=== PATIENT | male | born 1965 | race Caucasian/White ===

== ENCOUNTER 2017-07-22 07:47 | Emergency (ER) | payer OTHER ==
[2017-07-22] MEDS ORDERED: NS 0.9% 1000 ML* 1,000 ML IV SCH (08:30)
[2017-07-22 08:37] LABS: ABS Basophils 0 10^3/ul (0-0.2); ABS Eosinophils 0.1 10^3/ul (0-0.6); ABS Lymphocytes 1.7 10^3/ul (1.0-4.8); ABS Monocytes 0.6 10^3/ul (0-0.8); ABS Neutrophils 3.9 10^3/ul (1.5-7.7); ABS Nucleated RBC 0 10^3/ul; Eosinophil % 1.7 % (0-6); Hematocrit 46 % (42-52); Hemoglobin 15.8 g/dl (14.0-18.0); Lymphocyte % 27.2 % (25-47); Mean Corpuscular HGB Conc 35 g/dl (31-36); Mean Corpuscular Hemoglobin 32 pg (27-31); Mean Corpuscular Volume 92 fL (80-94); Mean Platelet Volume 7 um3 (7.4-10.4); Nucleated Red Blood Cells % 0.1; Platelet Count 256 10^3/ul (150-450); Red Blood Count 4.95 10^6/ul (4.0-5.4); Red Cell Distribution Width 13 % (10.5-15); White Blood Count 6.4 10^3/ul (3.5-10.8)
[2017-07-22 08:53] LABS: EGFR Non-African American 76.4 (>60)
[2017-07-22] MEDS ORDERED: Iohexol 300* (CONTRAST) 10 ML SDV IV ONE (09:14)
--- NOTE | 2017-07-22 10:54 | RAD ---
CLINICAL HISTORY: 4 days of abdominal pain COMPARISON: None TECHNIQUE: Contrast enhanced CT examination of the abdomen and pelvis from the lung bases through the initial tuberosities. The patient received mL intravenously prior to imaging.The patient received oral contrast as well prior to imaging. FINDINGS: VISUALIZED LUNG BASES: The visualized lung bases are grossly clear. There is no pleural effusion. ABDOMEN AND PELVIS: The liver is homogenously hypodense relative to the spleen. The spleen, pancreas and adrenal glands are grossly normal in appearance. The gallbladder is normal. The kidneys are normal in appearance without focal mass, calcification or signs of hydronephrosis. Neural contrast has progressed as far as the base of the cecum. The small and large bowel are not distended. The patient's normal appendix is identified in the right lower quadrant measuring 5 mm in diameter (image 59). There are air-fluid levels throughout the small bowel and colon. There is no definite wall thickening. Incidentally noted is a large amount of gas in the rectum. There is no gross retroperitoneal or mesenteric lymphadenopathy. The pelvic viscera is normal in appearance. The abdominal aorta and iliac arteries are normal in course and diameter. Degenerative changes include multilevel loss of intervertebral disc height involving the lower thoracic and lumbar spine. The most severe degenerative changes are at L5/S1 where there is pars interarticularis defects causing at least grade 1 bordering on grade 2 anterolisthesis of L5 over S1 with subsequent endplate sclerosis, vacuum disc phenomenon and marginal osteophyte formation. IMPRESSION: 1. Air-fluid levels throughout the otherwise normal-appearing small and large bowel are consistent with diarrhea illness. There is also incidentally noted a large amount of gas in the rectum which may be contributing element of "gas pain". 2. Likely hepatic steatosis. 3. Additional chronic and degenerative changes described in the body the report
[2017-07-22 11:42] VITALS: BP 118/71
--- NOTE | 2017-07-22 18:09 | ED ---
Gabriel Osorio Nikita, scribed for Juan Marcos MD on 07/22/17 at 0837 . Abdominal Pain/Male - HPI Summary HPI Summary: This patient is a 52 year old M presenting to ED with a chief complaint of mid abdominal pain since 4 days ago. The CC is described as dull, tight, intermittent, and non-radiating. The patient rates the pain 5/10 in severity. Symptoms aggravated by nothing. Symptoms alleviated by lying in the bathtub and eating sauerkraut. Patient reports diarrhea (2.5 days ago). Patient denies N/V, CP, and SOB. - History of Current Complaint Chief Complaint: EDAbdPain Stated Complaint: ABD PAIN Time Seen by Provider: 07/22/17 08:17 Hx Obtained From: Patient Onset/Duration: Sudden Onset, Lasting Days, Still Present Timing: Intermittent Severity Initially: Moderate Severity Currently: Moderate Pain Intensity: 5 Pain Scale Used: 0-10 Numeric Location: Other - mid abdominal pain Radiates: No Character: Dull, Other: - tight Aggravating Factor(s): Nothing Alleviating Factor(s): Other: - lying in the bathtub and eating sauerkraut Associated Signs And Symptoms: Positive: Other - Patient reports diarrhea (2.5 days ago). Patient denies N/V, CP, and SOB. - Allergies/Home Medications Allergies/Adverse Reactions: Allergies Allergy/AdvReac Type Severity Reaction Status Date / Time No Known Allergies Allergy Verified 07/22/17 08:01 Home Medications: Home Medications NK [No Home Medications Reported] 07/22/17 [History Confirmed 07/22/17] PMH/Surg Hx/FS Hx/Imm Hx Endocrine/Hematology History: Denies: Hx Diabetes Cardiovascular History: Denies: Hx Coronary Artery Disease, Hx Hypertension - Immunization History Date of Influenza Vaccine: 03/2017 Immunizations Up to Date: Yes Infectious Disease History: No Infectious Disease History: Denies: Traveled Outside the [place] in Last 30 Days - Family History Known Family History: Positive: Cardiac Disease - Social History Alcohol Use: Occasionally Substance Use Type: Reports: None Smoking Status (MU): Never Smoked Tobacco Review of Systems Negative: Chest Pain Negative: Shortness Of Breath Positive: Abdominal Pain - mid abdominal pain, Diarrhea. Negative: Vomiting, Nausea All Other Systems Reviewed And Are Negative: Yes Physical Exam - Summary Physical Exam Summary: VITAL SIGNS: Reviewed. GENERAL: Patient is a well-developed and nourished male who is lying comfortable in the stretcher. ~Patient is not in any acute respiratory distress. HEAD AND FACE: Normocephalic and atraumatic. EYES: PERRLA, EOMI x 2, No injected conjunctiva. EARS: Hearing grossly intact. Ear canals and tympanic membranes are WNL. MOUTH: Oropharynx within normal limits. NECK: Supple, trachea is midline, no adenopathy, no JVD. CHEST: Symmetric, no tenderness at palpation LUNGS: Clear to auscultation bilaterally. No wheezing or crackles. CVS: RRR, S1 and S2 present, no murmurs or gallops appreciated. ABDOMEN: Diffuse abdominal tenderness . No signs of distention. Positive bowel sounds. No rebound no guarding, and no masses palpated. No abdominal bruit or pulsations. EXTREMITIES: FROM in all major joints, no edema, no cyanosis or clubbing. NEURO: Alert and oriented x 3. No acute neurological deficits. Speech is normal. SKIN: Dry and warm Triage Information Reviewed: Yes Vital Signs On Initial Exam: Initial Vitals Temp Pulse Resp BP Pulse Ox 97.6 F 77 16 144/97 99 07/22/17 07:51 07/22/17 07:51 07/22/17 07:51 07/22/17 07:51 07/22/17 07:51 Vital Signs Reviewed: Yes Diagnostics - Vital Signs Vital Signs Temp Pulse Resp BP Pulse Ox 07/22/17 08:06 73 14 96 07/22/17 08:05 151/97 07/22/17 07:51 97.6 F 77 16 144/97 99 - Laboratory Lab Results: Lab Results 07/22/17 07/22/17 07/22/17 Range/Units 08:25 08:25 11:28 WBC 6.4 (3.5-10.8) 10^3/ul RBC 4.95 (4.0-5.4) 10^6/ul Hgb 15.8 (14.0-18.0) g/dl Hct 46 (42-52) % MCV 92 (80-94) fL MCH 32 H (27-31) pg MCHC 35 (31-36) g/dl RDW 13 (10.5-15) % Plt Count 256 (150-450) 10^3/ul MPV 7 L (7.4-10.4) um3 Neut % (Auto) 60.6 (38-83) % Lymph % (Auto) 27.2 (25-47) % Stewart % (Auto) 9.7 H (1-9) % Eos % (Auto) 1.7 (0-6) % Baso % (Auto) 0.8 (0-2) % Absolute Neuts (auto) 3.9 (1.5-7.7) 10^3/ul Absolute Lymphs (auto) 1.7 (1.0-4.8) 10^3/ul Absolute Monos (auto) 0.6 (0-0.8) 10^3/ul Absolute Eos (auto) 0.1 (0-0.6) 10^3/ul Absolute Basos (auto) 0 (0-0.2) 10^3/ul Absolute Nucleated RBC 0 10^3/ul Nucleated RBC % 0.1 Sodium 134 (133-145) mmol/L Potassium 4.1 (3.5-5.0) mmol/L Chloride 103 (101-111) mmol/L Carbon Dioxide 26 (22-32) mmol/L Anion Gap 5 (2-11) mmol/L BUN 13 (6-24) mg/dL Creatinine 1.03 (0.67-1.17) mg/dL Est GFR ( Amer) 98.3 (>60) Est GFR (Non-Af Amer) 76.4 (>60) BUN/Creatinine Ratio 12.6 (8-20) Glucose 96 (70-100) mg/dL Calcium 9.9 (8.6-10.3) mg/dL Magnesium 2.0 (1.9-2.7) mg/dL Total Bilirubin 0.80 (0.2-1.0) mg/dL AST 17 (13-39) U/L ALT 17 (7-52) U/L Alkaline Phosphatase 68 (34-104) U/L Total Creatine Kinase 131 (10-223) U/L Troponin I 0.00 0.00 (<0.04) ng/mL C-Reactive Protein 1.22 (< 5.00) mg/L Total Protein 7.0 (6.4-8.9) g/dL Albumin 4.5 (3.2-5.2) g/dL Globulin 2.5 (2-4) g/dL Albumin/Globulin Ratio 1.8 (1-3) Amylase 32 (29-103) U/L Lipase 42 (11.0-82.0) U/L Result Diagrams: 07/22/17 08:25 07/22/17 08:25 Lab Statement: Any lab studies that have been ordered have been reviewed, and results considered in the medical decision making process. - CT Abd/pel CT Interpretation Completed By: Radiologist - 1. Air-fluid levels throughout the otherwise normal-appearing small and large bowel are consistent with diarrhea illness. There is also incidentally noted a large amount of gas in the rectum which may be contributing element of "gas pain". 2. Likely hepatic steatosis. 3. Additional chronic and degenerative changes described in the body the report. ED physician has reviewed this radiology report. - EKG 0801 Cardiac Rate: NL EKG Rhythm: Sinus Rhythm - 70 bpm EKG Interpretation: No ST elevations Re-Evaluation - Re-Evaluation First Eval Re-Evaluation Time: 11:34 Comment: Discussed discharge plan with the pt. Abdominal Pain Fem Course/Dx - Course Assessment/Plan: This patient is a 52 year old M presenting to ED with a chief complaint of mid abdominal pain since 4 days ago. Abd/pel CT 1. Air-fluid levels throughout the otherwise normal-appearing small and large bowel are consistent with diarrhea illness. There is also incidentally noted a large amount of gas in the rectum which may be contributing element of "gas pain". 2. Likely hepatic steatosis. 3. Additional chronic and degenerative changes described in the body the report. In the ED course, the pt remained stable, passed gas, and feels slightly better. Since Sx are improving and CT is negative , the pt will be D/C with f/u with PCP. The pt is hemodynamically stable, alert and oriented x3. I discussed all the findings and test results with the patient. Patient was instructed to return to the emergency room immediately if any of the symptoms return or worsens. Plan of care was discussed with the patient and understands and agrees. All questions were answered at patient satisfaction. There were no further complaints or concerns. Lung exam before discharge: CTA B/L. Good air exchange. No wheezing or crackles heard. CVS: S1 and S2 present. No murmurs appreciated. Patient is alert and oriented x 3. Patient is hemodynamically stable. Patient will be discharged home with follow up PCP in the next 2-3 days - Diagnoses Differential Diagnosis/HQI/PQRI: Appendicitis, Bowel Obstruction, Constipation, Diverticulitis, Renal Colic, Other - enteritis Provider Diagnoses: Enteritis Discharge - Discharge Plan Condition: Stable Disposition: HOME Patient Education Materials: Enteritis (ED) Referrals: Glen Lehman MD [Primary Care Provider] - 3 Days Additional Instructions: RETURN TO THE ED FOR ANY NEW OR WORSENING SYMPTOMS. The documentation as recorded by the Gabriel meade Nikita accurately reflects the service I personally performed and the decisions made by Hemant swanson Walter, MD.
== END 2017-07-22 11:45 | disposition home or self-care (01) ==
LOC: ED 07:47
DX: K52.9 Noninfective gastroenteritis and colitis, unspecified (principal)
CPT/HCPCS: 36415; 74177; 80053; 82150; 82550; 83690; 83735; 84484; 85025; 86140; 93005; 99282; Q9967

== ENCOUNTER 2017-07-25 07:56 | Emergency (ER) | payer OTHER ==
[2017-07-25] MEDS ORDERED: Morphine INJ* 4 MG/ML 1 ML CARPUJECT IV ONE (08:32)
[2017-07-25] MEDS ORDERED: Ondansetron INJ* 2 MG/ML VIAL IV ONE (08:32)
[2017-07-25 08:57] LABS: ABS Basophils 0 10^3/ul (0-0.2); ABS Eosinophils 0.1 10^3/ul (0-0.6); ABS Lymphocytes 1.3 10^3/ul (1.0-4.8); ABS Monocytes 0.5 10^3/ul (0-0.8); ABS Neutrophils 3.1 10^3/ul (1.5-7.7); ABS Nucleated RBC 0 10^3/ul; Eosinophil % 2.3 % (0-6); Hematocrit 46 % (42-52); Hemoglobin 15.6 g/dl (14.0-18.0); Lymphocyte % 26.3 % (25-47); Mean Corpuscular HGB Conc 34 g/dl (31-36); Mean Corpuscular Hemoglobin 32 pg (27-31); Mean Corpuscular Volume 93 fL (80-94); Mean Platelet Volume 7 um3 (7.4-10.4); Nucleated Red Blood Cells % 0; Platelet Count 249 10^3/ul (150-450); Red Blood Count 4.93 10^6/ul (4.0-5.4); Red Cell Distribution Width 13 % (10.5-15); White Blood Count 5.1 10^3/ul (3.5-10.8)
--- NOTE | 2017-07-25 09:32 | RAD ---
HISTORY: 1 week of right upper quadrant pain COMPARISONS: CT of the abdomen and pelvis dated July 22, 2017 TECHNIQUE: Multiple transverse and longitudinal ultrasound images were obtained of the right upper quadrant. FINDINGS: LIVER: The liver is normal in dimensions and echogenicity. Normal hepatic and portal venous blood flow is duplicated with color flow imaging. There is no gross intrahepatic biliary duct dilatation. GALLBLADDER AND EXTRAHEPATIC BILIARY DUCT: The gallbladder is normal in appearance without intraluminal stones or other soft tissue masses. There is no pericholecystic fluid or gallbladder wall thickening. The common bile duct measures a maximum diameter of 3 mm. PANCREAS: Overlying bowel gas prevents reliable imaging of the pancreas. RIGHT KIDNEY: The right kidney is normal in size, morphology and echogenicity. AORTA AND IVC: The visualized portions are normal in appearance and not pathologically dilated. IMPRESSION: Normal ultrasound of the right upper quadrant.
[2017-07-25] MEDS ORDERED: Pantoprazole IV* 40 MG IV ONE (10:55)
--- NOTE | 2017-07-25 11:13 | RAD ---
Indication: Mid chest pain for one week. Comparison: July 22, 2017 CT and July 25, 2017 RIGHT upper quadrant ultrasound. Technique: Supine and upright views of the abdomen. Report: No radiographic evidence for free air. Short segment mildly dilated small bowel at the upper abdomen without significant air-fluid levels. Gas distention of the colon. Pelvic phleboliths. No suspicious calcifications. Negative for mass effect. IMPRESSION: Nonspecific bowel gas pattern with mildly prominent upper abdominal small bowel loops. Correlate for potential ileus.
[2017-07-25 11:52] VITALS: BP 136/82
[2017-07-25 12:54] LABS: Urine Appearance Clear; Urine Blood Negative (Negative); Urine Color Yellow; Urine Ketones Negative (Negative); Urine Protein Negative (Negative); Urine Specific Gravity 1.014 (1.010-1.030); Urine Urobilinogen Negative (Negative)
--- NOTE | 2017-07-26 18:07 | ED ---
Reagan Osorio Angela, scribed for Juan Marcos MD on 07/25/17 at 0830 . Abdominal Pain/Male - HPI Summary HPI Summary: This pt is a 52 y/o male presenting to [facility] c/o epigastric pain since last night at 22:00. Pt reports he had a piece of chicken thigh with noodles last evening and his pain began at 22:00 after he ate. He states he felt great while at work yesterday. He currently rates his pain 8/10 in severity. Pt notes his pain is aggravated with ambulating. He denies SOB, nausea, vomiting, diarrhea. Pt was in the ED 3 days ago for the same symptoms and had an abdomen/pelvis CT. - History of Current Complaint Chief Complaint: EDAbdPain Stated Complaint: ABD PAIN Time Seen by Provider: 07/25/17 08:22 Hx Obtained From: Patient Onset/Duration: Lasting Hours, Still Present Timing: Lasting Hours Severity Currently: Severe Pain Intensity: 8 Pain Scale Used: 0-10 Numeric Location: Diffuse Radiates: No Aggravating Factor(s): Other: - ambulating Alleviating Factor(s): Nothing Associated Signs And Symptoms: Negative: Fever, Nausea, Vomiting, Diarrhea - Allergies/Home Medications Allergies/Adverse Reactions: Allergies Allergy/AdvReac Type Severity Reaction Status Date / Time No Known Allergies Allergy Verified 07/22/17 08:01 PMH/Surg Hx/FS Hx/Imm Hx Endocrine/Hematology History: Denies: Hx Diabetes Cardiovascular History: Denies: Hx Coronary Artery Disease, Hx Hypertension History: Denies: Hx Renal Disease - Immunization History Date of Influenza Vaccine: 03/2017 Infectious Disease History: No Infectious Disease History: Denies: Traveled Outside the [place] in Last 30 Days - Family History Known Family History: Positive: Cardiac Disease - Social History Alcohol Use: Occasionally Substance Use Type: Reports: None Smoking Status (MU): Never Smoked Tobacco Review of Systems Negative: Fever, Chills Negative: Shortness Of Breath Positive: Abdominal Pain. Negative: Vomiting, Diarrhea, Nausea All Other Systems Reviewed And Are Negative: Yes Physical Exam - Summary Physical Exam Summary: VITAL SIGNS: Reviewed. GENERAL: Patient is a well-developed and nourished (MALE OR FEMALE) who is lying comfortable in the stretcher. Patient is not in any acute respiratory distress. HEAD AND FACE: No signs of trauma. No ecchymosis, hematomas or skull depressions. No sinus tenderness. EYES: PERRLA, EOMI x 2, No injected conjunctiva, no nystagmus. EARS: Hearing grossly intact. Ear canals and tympanic membranes are within normal limits. MOUTH: Oropharynx within normal limits. NECK: Supple, trachea is midline, no adenopathy, no JVD, no carotid bruit, no c- spine tenderness, neck with full ROM. CHEST: Symmetric, no tenderness at palpation LUNGS: Clear to auscultation bilaterally. No wheezing or crackles. CVS: Regular rate and rhythm, S1 and S2 present, no murmurs or gallops appreciated. ABDOMEN: Soft. Right upper quadrant tenderness. No signs of distention. No rebound no guarding, and no masses palpated. Bowel sounds are normal. EXTREMITIES: FROM in all major joints, no edema, no cyanosis or clubbing. NEURO: Alert and oriented x 3. No acute neurological deficits. Speech is normal and follows commands. SKIN: Dry and warm Triage Information Reviewed: Yes Vital Signs On Initial Exam: Initial Vitals Temp Pulse Resp BP Pulse Ox 98.3 F 73 20 136/89 100 07/25/17 08:00 07/25/17 08:00 07/25/17 08:00 07/25/17 08:00 07/25/17 08:00 Vital Signs Reviewed: Yes Diagnostics - Vital Signs Vital Signs Temp Pulse Resp BP Pulse Ox 07/25/17 08:00 98.3 F 73 20 136/89 100 - Laboratory Result Diagrams: 07/25/17 08:46 07/25/17 08:46 Lab Statement: Any lab studies that have been ordered have been reviewed, and results considered in the medical decision making process. - Radiology Abdomen XR Xray Interpretation: Positive (See Comments) - IMPRESSION: Nonspecific bowel gas pattern with mildly prominent upper abdominal small bowel loops. Correlate for potential ileus. Dr. Marcos has reviewed this radiology report. Radiology Interpretation Completed By: Radiologist - Ultrasound No standard instances Ultrasound Interpretation: No Acute Changes - Gallbladder US: Normal ultrasound of the right upper quadrant. Dr. Marcos has reviewed this radiology report. Ultrasound Interpretation Completed By: Radiologist - EKG 08:41 Cardiac Rate: Bradycardia EKG Rhythm: Sinus Bradycardia - at 54 bpm EKG Interpretation: No ST elevation. Abdominal Pain Fem Course/Dx - Course Assessment/Plan: This pt is a 52 y/o male presenting to [facility] c/o epigastric pain since last night at 22:00. Pt reports he had a piece of chicken thigh with noodles last evening and his pain began at 22:00 after he ate. He states he felt great while at work yesterday. He currently rates his pain 8/10 in severity. Pt notes his pain is aggravated with ambulating. He denies SOB, nausea , vomiting, diarrhea. Pt was in the ED 3 days ago for the same symptoms and had an abdomen/pelvis CT. Test results without any significant abnormalities. Urinalysis is negative for UTI. Gallbladder US: Normal ultrasound of the right upper quadrant. Abdomen XR shows Nonspecific bowel gas pattern with mildly prominent upper abdominal small bowel loops. Correlate for potential ileus. The pt was given morphine for the pain, Zofran for the nausea and Protonix. After these medications, the symptoms have resolved, the pain is 0/10. I saw the pt a couple of days ago and did an abdomen/pelvis CT which was negative for an acute pathology. I believe the pt may be dealing with gastritis vs peptic ulcer disease. Therefore, I believe he will benefit from a GI consult. The pt agrees with the plan, therefore he will be discharged to home with follow up from PCP. Pt is hemodynamically stable, alert and oriented x3. - Diagnoses Provider Diagnoses: Abdominal pain Discharge - Discharge Plan Condition: Stable Disposition: HOME Prescriptions: HYDROcodone/ACETAMIN 5-325 MG* [[place] 5-325 TAB*] 1 tab PO Q6H PRN #12 tab MDD 4 PRN Reason: Pain Patient Education Materials: Abdominal Pain (ED) Referrals: Vaibhav Traore MD [Medical Doctor] - 3 Days Glen Lehman MD [Primary Care Provider] - Neil Roche MD [Medical Doctor] - 3 Days Additional Instructions: Please follow up with Dr. Roche or Dr. Traore, gastroenterologists. RETURN TO THE ED FOR ANY WORSENING SYMPTOMS The documentation as recorded by the Reagan meade Angela accurately reflects the service I personally performed and the decisions made by me, Juan Marcos MD.
== END 2017-07-25 11:51 | disposition home or self-care (01) ==
LOC: ED 07:56
DX: R10.13 Epigastric pain (principal)
CPT/HCPCS: 36415; 74019; 76705; 80053; 81003; 82150; 83605; 83690; 84484; 85025; 86140; 93005; 96374; 96375; 99283; J2270; J2405

== ENCOUNTER 2019-08-19 10:24 | Emergency (ER) | payer BC ==
[2019-08-19 10:43] VITALS: BP 123/78
[2019-08-19 11:25] LABS: Influenza A Molecular POSITIVE (Negative)
--- NOTE | 2019-08-19 11:47 | UC ---
FLU HPI - HPI Summary HPI Summary: 54-year-old male with flulike symptoms since yesterday. - History of Current Complaint Chief Complaint: UCGeneralIllness Stated Complaint: CHILLS,FEVER,COUGH Time Seen by Provider: 08/19/19 11:07 Hx Obtained From: Patient Onset/Duration: Sudden Onset, Lasting Hours Severity Currently: Moderate Severity Initially: Moderate Pain Intensity: 0 Associated Signs & Symptoms: Positive: Fever, Myalgia, Cough, Nasal Congestion, Headache Related Hx: Possible Flu/Infectious Exposure - Allergy/Home Medications Allergies/Adverse Reactions: Allergies Allergy/AdvReac Type Severity Reaction Status Date / Time No Known Allergies Allergy Verified 08/19/19 10:38 Home Medications: Home Medications Oseltamivir CAP* [Tamiflu CAP*] 75 mg PO BID 5 Days #10 cap 08/19/19 [Rx] Phenylephrine/Dm/Acetaminop/GG [Tylenol Cold-Flu Severe Caplet] 1 dose PO ONCE 08/19/19 [History Confirmed 08/19/19] PMH/Surg Hx/FS Hx/Imm Hx Previously Healthy: Yes - Surgical History Surgical History: None - Family History Known Family History: Positive: Cardiac Disease - Social History Occupation: Employed Full-time Lives: With Family Alcohol Use: Weekly Alcohol Amount: Patient states he quit drinking 14 days ago Substance Use Type: None Smoking Status (MU): Former Smoker When Did the Patient Quit Smoking/Using Tobacco: 1999 Review of Systems All Other Systems Reviewed And Are Negative: Yes Constitutional: Positive: Fever, Chills ENT: Positive: Nasal Discharge, Sinus Congestion Respiratory: Positive: Cough - Dry nonproductive cough Musculoskeletal: Positive: Myalgia Neurological/Mental Status: Positive: Headache Is Patient Immunocompromised?: No Physical Exam Triage Information Reviewed: Yes Appearance: Well-Appearing, No Pain Distress, Well-Nourished Vital Signs: Initial Vital Signs Temp 100.9 F 08/19/19 10:39 Pulse 96 08/19/19 10:39 Resp 14 08/19/19 10:39 BP 123/78 08/19/19 10:39 Pulse Ox 95 08/19/19 10:39 Vital Signs Reviewed: Yes Eyes: Positive: Conjunctiva Clear ENT: Positive: Pharynx normal, Nasal drainage - Clear nasal coryza, TMs normal, Uvula midline Neck: Positive: Supple, Nontender, No Lymphadenopathy Respiratory: Positive: Lungs clear, Normal breath sounds, No respiratory distress, No accessory muscle use Cardiovascular: Positive: RRR, No Murmur, Pulses Normal, Brisk Capillary Refill Musculoskeletal Exam: Normal Neurological Exam: Normal Psychological Exam: Normal Skin Exam: Normal Flu Course/Dx - Course Course Of Treatment: Rapid flu test: Positive The patient is comfortable here and nontoxic. He opted to start Tamiflu. - Differential Dx/Diagnosis Provider Diagnosis: Influenza A Discharge ED - Sign-Out/Discharge Documenting (check all that apply): Patient Departure All imaging exams completed and their final reports reviewed: No Studies - Discharge Plan Condition: Fair Disposition: HOME Prescriptions: Oseltamivir CAP* [Tamiflu CAP*] 75 mg PO BID 5 Days #10 cap Patient Education Materials: Influenza (DC) Forms: *Work Release Referrals: Glne Lehman MD [Primary Care Provider] - Additional Instructions: Increase fluids, rest, [id number] cold medicines as directed. Follow up with your primary care provider if no improvement in 3 or 4 days. - Billing Disposition and Condition Condition: FAIR Disposition: Home
== END 2019-08-19 12:00 | disposition home or self-care (01) ==
LOC: UCCORT 10:24
DX: J10.1 Influenza due to other identified influenza virus with other respiratory manifestations (principal); Z87.891 Personal history of nicotine dependence
CPT/HCPCS: 99212; G0463